=== PATIENT | male | born 1990 | race African-American/Black ===

== ENCOUNTER 2022-12-04 08:07 | Emergency (ER) | payer SELFPAY ==
[~2022-12-04] VITALS: Ht 175.3 cm; Wt 77.1 kg
--- NOTE | 2022-12-04 08:10 | NUR ---
PT BIBA TO BED 6
[2022-12-04 08:14] VITALS: BP 140/94
[2022-12-04] MEDS ORDERED: diphenhydrAMINE 50 MG/ML VIAL IM ONE (08:25)
[2022-12-04] MEDS ORDERED: HALOPERIDOL IM 5 MG/ML VIAL IM ONE (08:35)
--- NOTE | 2022-12-04 08:35 | NUR ---
32YO MALE PT [facility] D/T ALOC. PER [facility], FACILITY STAFF SUDDEN ONSET AND STATE PT HAS NOT BEEN COMPLIANT W/ PSYCH MEDS -UNABLE TO RECALL NAMES. AT ARRIVAL , PT AAOX0 AND RESTLESS. ABLE TO FOLLOW SIMPLE INSTRUCTION W/ REDIRECTION. DENIES PAIN OR DRUG USE. 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 HX: UNOBTAINABLE ALLERGIES: UNOBAINABLE
[2022-12-04] MEDS ORDERED: HALOPERIDOL IM 5 MG/ML VIAL ONE (08:36)
--- NOTE | 2022-12-04 09:07 | NUR ---
PT TAKEN TO CT VIA [facility]
--- NOTE | 2022-12-04 09:13 | NUR ---
PT BROUGHT BACK VIA [facility]
[2022-12-04 10:14] LABS: BASOPHILS % (AUTO) 0.7 % (0.0-2.0); EOSINOPHILS % (AUTO) 0.1 % (0.0-4.0); HEMOGLOBIN 12.1 g/dL (12.0-18.0); LYMPHOCYTES # (AUTO) 1.2 K/uL (2.0-11.5); LYMPHOCYTES % (AUTO) 28.3 % (20.5-51.1); MEAN CORPUSCULAR HEMOGLOBIN 24 pg (27-31); MEAN CORPUSCULAR HGB CONC 33 g/dL (33-37); MEAN CORPUSCULAR VOLUME 72.3 fL (80-94); MONOCYTES # (AUTO) 0.5 K/uL (0.8-1.0); NEUTROPHILS # (AUTO) 2.5 K/uL (1.8-7.7); NEUTROPHILS % (AUTO) 59.9 % (42.2-75.2); PLATELET COUNT (AUTO) 284 K/uL (140-450); RED BLOOD CELL COUNT(AUTO) 5.12 MIL/uL (4.20-6.10); RED CELL DISTRIBUTION WIDTH 14.5 % (11.6-13.7); WHITE BLOOD COUNT (AUTO) 4.2 K/uL (4.8-10.8)
[2022-12-04 10:48] LABS: ALBUMIN 4.3 g/dL (3.4-5.0); ANION GAP 11.8 (8-16); ASPARTATE AMINOTRANSFERASE 28 U/L (15-37); CARBON DIOXIDE 25.8 mmol/L (21-32); CHLORIDE 104 mmol/L (98-107); CREATININE 1.1 mg/dL (0.6-1.3); GFR ARICAN-AMERICAN 100 mL/min (>90); GLUCOSE 104 mg/dL (74-106); POTASSIUM 3.6 mmol/L (3.5-5.1); SALICYLATE < 2.8 mg/dL (2.8-20.0); SODIUM SERUM 138 mmol/L (136-145); TOTAL BILIRUBIN 0.6 mg/dL (0.0-1.0); UREA NITROGEN, BLOOD 9 mg/dL (7-18)
[2022-12-04 11:26] LABS: BARBITURATE, URINE NEGATIVE ng/ml (NEG <=200); BENZODIAZEPINE, URINE NEGATIVE ng/mL (NEG <=200); CANNABINOID, URINE POS ng/mL (NEG <=50); COCAINE, URINE NEGATIVE ng/mL (NEG <=300); OPIATE, URINE NEGATIVE ng/mL (NEG <=2000); PHENCYCLIDINE SCREEN,URINE NEGATIVE ng/mL (NEG <=25)
[2022-12-04 12:13] LABS: ACETAMINOPHEN < 0.5 ug/ml (10-30)
[2022-12-04 14:20] VITALS: BP 125/81
--- NOTE | 2022-12-04 15:06 | NUR ---
PT ON TELEPSYCH CALL W/ MD GONZALEZ
--- NOTE | 2022-12-04 15:17 | NUR ---
PER ОЛЕГ MAHAJAN D/C Addendum: 12/04/22 at 1519 by DEVON SLAVA ISRAEL
--- NOTE | 2022-12-04 15:40 | NUR ---
The patient's care was reviewed and supervised by Nir Sultana RN.
--- NOTE | 2022-12-04 15:40 | NUR ---
Patient discharged with v/s stable. Written and verbal after care instructions FOR SUBTANCE USE DISORDER given and explained. Patient verbalized understanding. Ambulatory with steady gait. All questions addressed prior to discharge. Advised to follow up with PMD.
== END 2022-12-04 15:40 | disposition home or self-care (01) ==
LOC: MED 08:07
DX: F15.929 Other stimulant use, unspecified with intoxication, unspecified (principal); R45.1 Restlessness and agitation; R46.1 Bizarre personal appearance
CPT/HCPCS: 36415; 70450; 80053; 80305; 85025; 93005; 96372; 99291; G0480; G0482; J1200; J1630